=== PATIENT | male | born 1985 | race Caucasian/White ===

== ENCOUNTER 2019-08-01 19:03 | Emergency (ER) | payer MEDICAID, OTHER ==
[~2019-08-01] VITALS: Ht 175.3 cm; Wt 81.4 kg
[~2019-08-01 19:03] MED LIST: IBUP-2077 PO; MELO7.5T12 PO; NAPR275T96 PO; [UNRECOGNIZED DRUG - CODE] PO
[2019-08-01] MEDS ORDERED: BUPR8TAB4 SL (20:35)
[2019-08-01] MEDS ORDERED: ACETAMINOPHEN 500 MG TABLET PO ONE (22:00)
[2019-08-01] MEDS ORDERED: DOXYCYCLINE HYCLATE 100 MG CAPSULE PO ONE (22:00)
[2019-08-01 22:14] VITALS: BP 119/72
== END 2019-08-01 22:24 | disposition home or self-care (01) ==
LOC: EMS 19:04
DX: S00.11XA Contusion of right eyelid and periocular area, initial encounter (principal); L02.413 Cutaneous abscess of right upper limb; F19.10 Other psychoactive substance abuse, uncomplicated; F11.90 Opioid use, unspecified, uncomplicated; Z88.1 Allergy status to other antibiotic agents; X58.XXXA Exposure to other specified factors, initial encounter; Y93.89 Activity, other specified; Y92.89 Other specified places as the place of occurrence of the external cause; Y99.8 Other external cause status

== ENCOUNTER 2021-05-13 21:42 | Emergency (ER) | payer OTHER ==
[~2021-05-13] VITALS: Ht 175.3 cm; Wt 86.4 kg
[~2021-05-13 21:42] MED LIST changes: +BUPR8TAB4 SL; -IBUP-2077 PO; -MELO7.5T12 PO; -NAPR275T96 PO; -[UNRECOGNIZED DRUG - CODE] PO
[2021-05-14 01:27] VITALS: BP 141/79
== END 2021-05-14 04:32 | disposition left against medical advice (07) ==
LOC: EMS 21:47
DX: K08.89 Other specified disorders of teeth and supporting structures (principal); Z53.21 Procedure and treatment not carried out due to patient leaving prior to being seen by health care provider